=== PATIENT | male | born 1945 | race Caucasian/White ===

== ENCOUNTER 2019-08-22 06:05 | Day surgery (SDC) | payer SELFPAY ==
[2019-08-11 13:41] VITALS: BMI 23.6
[2019-08-22] MEDS ORDERED: EPINEPHrine/PF 1 MG/1 ML (1:1,000) AMPULE ONE (07:08)
[2019-08-22] MEDS ORDERED: LIDOCAINE HCL 1%, 10 MG/ML (20ML VIAL) ONE (07:09)
[2019-08-22] MEDS ORDERED: BACITRACIN 15 GM TUBE TOPICAL OINTMENT ONE ×2 (07:49→13:53)
[2019-08-22] MEDS ORDERED: LIDOCAINE 1%/EPI 1:100000 (20 ML MULTI DOSE VIAL) ONE (07:53)
[2019-08-22] MEDS ORDERED: MIDAZOLAM HCL 2 MG/2 ML SINGLE DOSE VIAL ONE (08:04)
[2019-08-22] MEDS ORDERED: ROCURONIUM BROMIDE 50 MG/5 ML SYRINGE ONE (08:12)
[2019-08-22] MEDS ORDERED: ACYCLOVIR IVPB SCH (09:30)
[2019-08-22] MEDS ORDERED: WATER IVPB SCH (09:30)
[2019-08-22] MEDS ORDERED: DEXTROSE 5% IVPB SCH (09:30)
[2019-08-22] MEDS ORDERED: PROPOFOL 20 ML ONE ×5 (09:46→12:08)
[2019-08-22] MEDS ORDERED: ePHEDrine SULFATE 50 MG/1 ML AMPULE ONE (10:07)
[2019-08-22] MEDS ORDERED: GUM MASTIC/STORAX/MSAL/ALCOHOL 1 DRP DROPSBTL MC ONE (13:53)
[2019-08-22] MEDS ORDERED: NITROGLYCERIN 2% OINTMENT - 1GM PACKET TD ONE (13:53)
[2019-08-22] MEDS ORDERED: ONDANSETRON 4 MG/2 ML VIAL IVPUSH PRN (14:01)
[2019-08-22] MEDS ORDERED: oxyCODONE HCL 5 MG TABLET PO PRN ×2 (14:01→15:55)
[2019-08-22] MEDS ORDERED: LACTATED RINGERS SOLUTION 1,000 ML IV SCH ×2 (14:15→16:00)
[2019-08-22] MEDS ORDERED: LIDOCAINE HCL/PF 2% SDV 5ML VIAL ONE (15:05)
[2019-08-22] MEDS ORDERED: SODIUM CHLORIDE 0.9% P/F 10 ML VIAL IJ ONE (15:05)
[2019-08-22] MEDS ORDERED: ONDANSETRON 4 MG/2 ML VIAL ONE (15:05)
[2019-08-22] MEDS ORDERED: ceFAZolin SODIUM 1 GM VIAL ONE (15:05)
[2019-08-22] MEDS ORDERED: ONDANSETRON 4 MG/2 ML VIAL IVPB PRN (15:55)
[2019-08-22] MEDS ORDERED: TESTOSTERONE ENANTHATE SQ SCH (16:00)
--- NOTE | 2019-08-22 16:05 | OP ---
Operative Note - Note: Operative Date: 08/22/19 Pre-Operative Diagnosis: facial aging/ HIV wasting Operation: facelift with fat grafting to cheeks Findings: bleeding at end of case and despite good hemostasis will recommend observation overnight Post-Operative Diagnosis: Same as Pre-op Surgeon: Surya Farfan Anesthesia: General Operative Report Dictated: Yes
--- NOTE | 2019-08-22 16:07 | PN ---
Progress Note (short form) - Note Progress Note: Patent is recovering without complication, but because of difficulty with hemostasis at the end of the case, I have recommended observation overnight. Diagnosis is bleeding. Full function of all branches of facial nerve. No current evidence of hematoma.Will obs
[2019-08-22] MEDS: morphine CARPU-JECT 2 MG/1 ML DISP.SYRIN IVPUSH PRN (18:41)
[2019-08-22] MEDS: ACYCLOVIR INJECTION 350 MG in DEXTROSE 5%-WATER - 100 ML IVPB SCH (20:25)
[2019-08-22] MEDS: CEFAZOLIN 1 GM/D5W 1 GM/50 ML BAG IVPB SCH (20:49)
[2019-08-22] MEDS ORDERED: ROSUVASTATIN CA 10 MG TABLET (FP) PO SCH (22:00)
[2019-08-23] MEDS: CEFAZOLIN 1 GM/D5W 1 GM/50 ML BAG IVPB SCH (01:59)
[2019-08-23] MEDS: ACYCLOVIR INJECTION 350 MG in DEXTROSE 5%-WATER - 100 ML IVPB SCH (01:59)
[2019-08-23] MEDS: morphine CARPU-JECT 2 MG/1 ML DISP.SYRIN IVPUSH PRN (03:14)
[2019-08-23 06:09] VITALS: BP 118/70; PULSE 77; TEMP 98.4
--- NOTE | 2019-08-23 07:42 | PN ---
Progress Note (short form) - Note Progress Note: small collection milked out the drains. This was the reason for observation. No expanding hematoma or active bleeding or residual collection. VSS AF. OK for discharge with drains in place. Will see tomorrow.
[2019-08-23] MEDS ORDERED: PATIENT'S OWN MEDICATION (NON-FORMULARY) (Calcium Carb/D3/Magnesium/Zinc [Cal Mag Zinc-D T PO SCH (10:00)
[2019-08-23] MEDS ORDERED: PATIENT'S OWN MEDICATION (NON-FORMULARY) (Dolutegravir/Rilpivirine [Juluca 50-25 Mg Tablet PO SCH (10:00)
[2019-08-23] MEDS ORDERED: RILPIVIRINE HCL 25 MG TABLET PO SCH (10:00)
[2019-08-23] MEDS ORDERED: CHOLECALCIFEROL (VIT D3) 1,000 UNIT (25 MCG) TABLET PO SCH (10:00)
[2019-08-23] MEDS ORDERED: MULTIVITAMINS (DAILY MVI) TABLET (FP) PO SCH (10:00)
[2019-08-23] MEDS ORDERED: DOLUTEGRAVIR SODIUM 50 MG TABLET (NON-FORMULARY) PO SCH (10:00)
--- NOTE | 2019-08-24 15:13 | OP ---
DATE OF OPERATION: 08/22/2019 TITLE OF PROCEDURE: Liposuction to bilateral flanks with free fat grafting to bilateral cheeks, bilateral nasolabial folds, bilateral marionette lines, bilateral lower face rhytidectomy and neck lift. ATTENDING SURGEON: Surya Ko MD; no assistants. ANESTHESIA: General endotracheal anesthesia. The patient is counseled preoperatively, all risks, benefits, and alternatives to the procedure, including, but not limited to, nerve injury, skin slough, facial asymmetry, irregular, unpredictable fat take, infection, seroma, hematoma. Patient fully understands. Agrees to proceed. Patient is marked in the holding area. Risks, benefits, and alternatives were thoroughly discussed again. Understands and agrees to proceed. DESCRIPTION OF PROCEDURE: The procedure is as follows. Patient is brought to the operating room and placed in a supine position, after which he is prepped and draped in the standard surgical fashion. A gram of Ancef is given. The patient is also given 350 mg of IV acyclovir prophylactically. Timeout is called. Patient, procedure, side and sites are verified. The patient is first prepped for liposuction of the bilateral flanks. This is done with several stab-wound incisions in the beltline, through which a [employer] fat-harvesting system is used, using the Revolve fat-harvesting system. A total lipoaspirate of 100 mL is yielded, which is able to generate after processing through the Revolve 35 mL of injectable fat. The liposuction holes are closed with 5-0 nylon sutures individually, they are dressed with Steri-Strips strips, and abdominal binder is applied. The table was then turned. The face is then prepped and draped. It is injected first in the neck, which is the area to be addressed first with a total of 30 mL of 0.75% lidocaine with 1:300,000 epinephrine. While the infiltration is being allowed to work, the remainder of prepping and draping is then performed, after which a submental incision is made. Facelift technique is used to elevate the skin flap, exposing the platysma muscle. The bilateral bands of the platysma muscle were identified and they are sutured to one another with a 4-0 Prolene suture. The inferior tethered ends of the platysma muscle are divided for 1.5 cm on either side to allow for a continuous cervicomental fold. Attention is then directed toward the left cheek, which was injected with an additional 30 mL of the same lidocaine mixture, and a facelift incision is made pretragal and continued into a retroauricular incision. A skin flap is elevated to expose the platysma and the posterolateral SMAS. A SMAS flap is then elevated over the parotid only and a 1.5-cm strip of SMAS is then transposed postauricular and secured to the mastoid fascia with a 3-0 PDS suture. The remainder of the SMAS flap is secured to with a series of buried 4-0 PDS suture. The lateral platysmal edges are plicated under tension with a series of interrupted buried 4-0 PDS suture, until a good, smooth, even contour of the neck is achieved. Any tethering points of skin are released. Hemostasis was then meticulously achieved. Attention was then directed toward the contralateral right side, where an exact, mirror-image procedure is performed. The skin appears healthy and viable. Hemostasis was then meticulously achieved. The wounds are copiously irrigated. The patient is brought to a normotensive state, prior to closure. Closure is then performed as follows. With the skin under no tension, it is redistributed and it is anchored at the root of the helix with a 4-0 PDS suture, at the postauricular apex with a 4-0 PDS suture. Excess skin is trimmed. A non-latex Nica drain is brought out through the posterior extent of the incision bilaterally, which is along the hairline, not distorting the hairline. A separate Nica drain is brought just cephalad to the root of the helix. The postauricular closure is performed with a running 5-0 chromic gut suture. The hairline posteriorly is closed with a series of interrupted skin arleth. The preauricular closure is performed with a running 6-0 nylon suture, as well as a sideburn cut with a 6-0 nylon suture. Closure is performed the same way on both sides. The submental incision is closed with a series of interrupted, buried, deep dermal 4-0 Monocryl suture, followed by a running 6-0 nylon suture. A dressing is applied with 4 x 4's, nitroglycerin paste as per routine, bacitracin, Xeroform, and a compressive head wrap. Patient awoken from anesthesia, having tolerated procedure well, transferred to recovery without complication. SURYA KO M.D. SHERI/[id number]
== END 2019-08-23 08:58 | disposition home or self-care (01) ==
LOC: FASUSAT 06:05 → FASU 06:05 → FM/S 17:21 → FASUSAT 08-23 08:58
PROVIDERS: ATTEND Plastic Surgery
PROC: 0W060ZZ Alteration of Neck, Open Approach (ICD-10-PCS; 2019-08-22)
PROC: 0J083ZZ Alteration of Abdomen Subcutaneous Tissue and Fascia, Percutaneous Approach (ICD-10-PCS; 2019-08-22)
PROC: 0J083ZZ Alteration of Abdomen Subcutaneous Tissue and Fascia, Percutaneous Approach (ICD-10-PCS; 2019-08-22)
PROC: 0W020ZZ Alteration of Face, Open Approach (ICD-10-PCS; principal; 2019-08-22 08:48)
DX: Z41.1 Encounter for cosmetic surgery (principal); L98.8 Other specified disorders of the skin and subcutaneous tissue; B20 Human immunodeficiency virus [HIV] disease; I10 Essential (primary) hypertension
CPT/HCPCS: 94760